=== PATIENT | male | born 1945 | race Caucasian/White ===

== ENCOUNTER → 2024-07-02 07:07 | Outpatient (REF) | payer MEDICARE, OTHER, SELFPAY | LOC: HWRCS 07:07 | PROVIDERS: ATTENDING PHYSICIAN Internal Medicine Cardiovascular Disease; FAMILY PHYSICIAN Internal Medicine | DX: I10 Essential (primary) hypertension (principal); I77.810 Thoracic aortic ectasia | CPT/HCPCS: 93306 ==

== ENCOUNTER 2024-11-21 19:24 | Emergency (ER) | payer MEDICARE, OTHER, SELFPAY ==
[2024-11-21 19:32] VITALS: BP 150/101
[2024-11-21 20:04] LABS: % Basophils 0.9 % (0-2); % Eosinophils 2.4 % (0-6); % Immature Granulocytes 0.2 % (0-0.5); % Lymphocytes 21.3 % (20.5-51.1); % Monocytes 11.9 % (1.7-9.3); % Neutrophils 63.3 % (42.2-75.2); Absolute Basophils 0.1 10^3/uL (0-0.2); Absolute Eosinophils 0.2 10^3/uL (0-0.7); Absolute Lymphocytes 2.1 10^3/uL (1.2-3.4); Absolute Monocytes 1.2 10^3/uL (0.1-0.6); Absolute Neutrophils 6.1 10^3/uL (1.4-6.5); Hematocrit 44.1 % (39.0-52.0); Hemoglobin 15.7 g/dL (13.0-18.0); Mean Corp Hgb Conc. 35.6 g/dL (33.0-37.0); Mean Corpuscular Hgb 32.4 pg (27.0-31.0); Mean Corpuscular Volume 90.9 fL (80.0-94.0); Nucleated Red Blood Cells % 0 % (-); Platelet Count 269 10^3/uL (130-400); Red Blood Cell Count 4.85 10^6/uL (4.70-6.10); Red Cell Dist. Width 13.3 % (11.5-14.5); White Blood Cell Count 9.7 10^3/uL (4.8-10.8)
[2024-11-21 20:23] LABS: ALT (SGPT) 31 U/L (0-50); AST (SGOT) 42 U/L (17-59); Alkaline Phosphatase 54 U/L (38-126); Blood Urea Nitrogen 22 mg/dl (9-20); Carbon Dioxide 25 mmol/L (22-30); Chloride 104 mmol/L (98-107); Glucose 159 mg/dl (70-99); Potassium 4.3 mmol/L (3.5-5.1); Sodium 140 mmol/L (135-145); Total Bilirubin 0.9 mg/dl (0.2-1.3); Total Protein 7.4 g/dl (6.3-8.2); eGFR > 60.00
[2024-11-21 20:32] VITALS: BP 140/102
--- NOTE | 2024-11-21 20:47 | ED.GENMED ---
History of Present Illness
General
Chief Complaint: Heart Rate Problem
Source: patient
Exam Limitations: none
Time Seen by Provider: 11/21/24 20:29
History of Present Illness
History of Present Illness:
79-year-old male presents with onset of rapid heart rate at 6 PM today. 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 He was hydrating all day felt well. He cleaned up and sat down afterwards around 6 PM 3 to book and noticed that he
sudden onset of rapid heart rate. There was no associated chest pain or shortness of breath. He denies any lightheadedness. Remotely he had 1 episode of atrial fibrillation following a spinal surgery that resolved with medication. He is not
anticoagulated other than a baby aspirin. No history of congestive heart failure. No other complaints at this time
Past History
Past History
ED Past Medical History: Arrthythmia, GERD, ME and Other (trans global amnesia following sinus surgery)
Social History
Tobacco: Non-smoker
Alcohol: Occasional
Drug: None
Personal:
Living: with family
Employment: Retired
Family History
Family History: Other
Phy Exam
Physical Exam
Physical Exam:
General: Well-appearing male no acute respiratory distress
HEENT: Normocephalic atraumatic
Heart: Irregular rate and rhythm tachycardic
Lungs: Clear no wheeze
Extremities: No cyanosis or edema
Skin: warm, no rash
Course
Orders/Labs/Results
Orders:
Orders
11/21/24 19:25
EKG [Electrocardiogram (*1)] Urgent
Reason for Study: Tachycardia
EKG- Treatment ONCE
11/21/24 19:56
Complete Blood Count/With Diff Urgent
Comprehensive Metabolic Panel Urgent
TSH Reflex To Free T4 Urgent
Comment: ADD ON
11/21/24 20:42
0.9% Sodium Chloride 1000 ml [Nss] 1,000 ml IV BOLUS
Diltiazem HCl [Cardizem] 20 mg IV NOW STA
11/21/24 20:43
Add On- LAB Urgent
Tests Added?: tsh reflex to t4
11/21/24 20:45
Diltiazem 125 mg/125 ml Nss [Cardizem] 125 mg in 125 ml IV PER PROTOCOL
Initial dose in mg/hr, then titrate:: 5
Titrate to keep:: Heart rate 80-100 bpm
Titrate by mg/hr:: 5 mg/hr
Frequency of titrations (minutes):: 15
Maximum dose in mg/hr:: 15
11/21/24 21:54
Electrocardiogram (*1) Urgent
Reason for Study: Palpitations
EKG- Treatment ONCE
11/21/24 22:30
Apixaban [Eliquis] 5 mg PO NOW STA
Abnormal Lab Results
11/21/24
19:56
MCH 32.4 H pg
(27.0-31.0)
Absolute Monos (auto) 1.2 H 10^3/uL
(0.1-0.6)
Monocytes % 11.9 H %
(1.7-9.3)
BUN 22 H mg/dl
(9-20)
Glucose 159 H mg/dl
(70-99)
11/21/24 19:56
11/21/24 19:56
Vital Signs
Initial and Last Documented VS:
Initial Vital Signs
Temp Pulse Resp BP Pulse Ox
97.5 F 144 18 150/101 97
11/21/24 19:32 11/21/24 19:32 11/21/24 19:32 11/21/24 19:32 11/21/24 19:32
Last Documented Vital Signs
Temp Pulse Resp BP Pulse Ox
97.5 F 83 9 140/86 98
11/21/24 19:32 11/21/24 21:45 11/21/24 21:45 11/21/24 21:09 11/21/24 21:45
MDM/Problems Addressed
Differential Diagnosis Includes:
Patient was sudden onset rapid heart rate at 6 PM today. He is not anticoagulated he has no symptoms otherwise. Blood pressure stable EKG shows atrial fibrillation with ventricular rate in the 130s. Patient denies chest pain.
Labs reviewed without significant abnormality TSH ordered. Fluids and Cardizem bolus ordered. Had discussion with patient regarding treatment options between rate control and potential cardioversion. He could potentially be a candidate for
cardioversion as he knows exactly when this started which was about 2 to 3 hours ago. Risks of the procedure were explained. Opted rate control initially
*Critical Care Note
Total Time (30-74mins, 75-104mins- exclusive of procedures): Not Applicable
Update Note
Update Note:
Patient had improved heart rate after Cardizem bolus and IV infusion. Had long discussion with patient regarding options of cardioversion versus continued rate control medicine. At this time he was not completely comfortable with cardioversion.
Discussed with Dr. Royal who recommended increasing his Cardizem from 180 mg daily to 240 mg daily starting Eliquis and close follow-up. Return precautions were given.
ED Attending Note
-
Portions of this chart may have been created with voice recognition software.� Occasional wrong word or��sound alike� substitutions may have occurred due to the inherent limitations of voice recognition software.
Discharge Plan
Departure
Patient Disposition: Home (Routine Discharge)
Date of Disposition: 11/21/24
Time of Disposition: 22:43
Patient with high blood pressure during this ER visit?: No
Discharge Problem:
Atrial fibrillation
Instructions: Atrial Fibrillation (DC), Chest Pain CBC Follow Up
Prescriptions:
New
Eliquis 5 mg tablet
5 mg PO BID Qty: 30 0RF
diltiazem HCl [Cartia XT] 240 mg capsule,extended release 24hr
240 mg PO DAILY Qty: 30 0RF
No Action
atorvastatin 40 MG tablet
40 mg PO QPM
carvedilol 12.5 MG tablet
12.5 mg PO BID
diltiazem HCl [Cartia XT] 180 MG capsule,extended release 24hr
180 mg PO DAILY
multivitamin 1 EACH tablet
1 ea PO DAILY
mupirocin 1 APPLIC ointment
1 applic intranasal BID Qty: 1 0RF
Patient Comments:
morning of surgery 03/16
oxycodone 5 MG tablet
5 mg PO Q6HPRN PRN (Reason: moderate-severe pain) Qty: 30 0RF
Patient Comments:
took 1/2 tablet 3 nights after stopping ibuprofen, last dose Wednesday 03/14 evening
Rx Instructions:
1 tab moderate pain or 2 if pain severe
Dx total joint replacement
ongoing therapy
ondansetron HCl 4 MG tablet
4 mg PO Q6HPRN PRN (Reason: nausea) Qty: 15 0RF
Rx Instructions:
Take 1/2 hour prior to Oxycodone for recurrent nausea
famotidine 20 MG tablet
20 mg PO HS Qty: 30 0RF
acetaminophen 500 MG tablet
1,000 mg PO Q6H Qty: 1 0RF
Rx Instructions:
Do not exceed >4000 mg daily.
docusate sodium 100 MG capsule
100 mg PO BID Qty: 1 0RF
sennosides [senna] 8.6 MG tablet
8.6 mg PO BID Qty: 2 0RF
aspirin 325 MG tablet
325 mg PO Daily Qty: 1 0RF
Patient Comments:
been taking low dose aspirin since 03/08, stopped aspirin altogether on 03/14
Rx Instructions:
Take daily x4 weeks for blood clot prevention; then resume Aspirin 81 mg daily
ibuprofen 200 MG tablet
400 mg PO BID Qty: 0 0RF
Rx Instructions:
Take with food.
Do not take within 2 hours of Aspirin.
Referrals:
Leander Ramirez, [Family Provider] -
Activity Restrictions/Additional Instructions:
Increase cardio from 180 mg to 240 mg daily. Take Eliquis as directed. Please follow-up with cardiology. Return if worse.
Interventions
Interventions:
*Risk Screen - Suicide Last Done: 11/21/24 19:32
*General Assessment Last Done: 11/21/24 19:32
*Neglect/Abuse Screening Last Done: 11/21/24 19:32
*ED- Fall Risk Assessment Last Done: 11/21/24 20:41
*ED COVID-19 Vaccine History Last Done: 11/21/24 20:41
ED- Cardiac Assessment Last Done: 11/21/24 21:17
ED- Pulmonary Assessment Last Done: 11/21/24 21:17
Discharge Date and Time
Print Language: ANGUILLAN
[2024-11-21] MEDS: NSS 1000 IV (20:49)
[2024-11-21] MEDS: CARDIZEM 20 MG IV (20:59)
[2024-11-21] MEDS: CARDIZEM 125 IV (20:59)
[2024-11-21 21:09] VITALS: BP 140/86
[2024-11-21 21:49] LABS: TSH Reflex To Free T4 4.37 uIU/ml (0.47-4.68)
[2024-11-21 22:01] VITALS: BP 124/85
[2024-11-21] MEDS: ELIQUIS 5 MG PO (22:35)
== END 2024-11-21 22:55 | disposition home or self-care (01) ==
LOC: EMR 19:24
PROVIDERS: Emergency Medicine; EMERGENCY PHYSICIAN Emergency Medicine; FAMILY PHYSICIAN Internal Medicine
DX: I48.91 Unspecified atrial fibrillation (principal); I25.2 Old myocardial infarction
CPT/HCPCS: 96374; 96361; 99284; 80053; 84443; 85025; 93005

== ENCOUNTER → 2024-12-08 11:00 | Outpatient (REF) | payer OTHER, SELFPAY | LOC: RCS 11:00 | PROVIDERS: ATTENDING PHYSICIAN Nurse Practitioner; FAMILY PHYSICIAN Internal Medicine | DX: Z95.5 Presence of coronary angioplasty implant and graft (principal); I48.0 Paroxysmal atrial fibrillation; I47.10 Supraventricular tachycardia, unspecified | CPT/HCPCS: 93306 ==